=== PATIENT | male | born 1990 | race Hispanic/Latino ===

== ENCOUNTER 2023-07-01 10:02 | Emergency (ER) | payer OTHER ==
[~2023-07-01] VITALS: Ht 180.3 cm; Wt 104.5 kg
[2023-07-01] MEDS ORDERED: ADDE15CA3 PO (10:23)
[2023-07-01] MEDS ORDERED: METH-1164 PO (13:26)
[2023-07-01 13:34] VITALS: BP 121/80; TEMP 97.4; O2SAT 96
== END 2023-07-01 13:38 | disposition home or self-care (01) ==
LOC: M ED 10:02
DX: S39.012A Strain of muscle, fascia and tendon of lower back, initial encounter (principal); X58.XXXA Exposure to other specified factors, initial encounter; Y99.1 Military activity

== ENCOUNTER → 2023-12-10 | Outpatient (CLI) | payer OTHER ==
[~2023-12-10] MED LIST: ADDE15CA3 PO; METH-1164 PO
== END ==
LOC: M CARPUL 08:09
PROVIDERS: ATTEND Physician Assistant
DX: R06.02 Shortness of breath (principal)

== ENCOUNTER → 2023-12-31 | Outpatient (CLI) | payer OTHER ==
[~2023-12-31] MED LIST changes: +METHACHOLINE KIT (6 VIAL.NEB PREMIX) INH ONE
== END ==
LOC: M CARPUL 09:46
PROVIDERS: ATTEND Internal Medicine Pulmonary Disease
DX: J45.20 Mild intermittent asthma, uncomplicated (principal)

== ENCOUNTER → 2025-05-16 | Outpatient (CLI) | payer OTHER ==
[~2025-05-16] MED LIST changes: -METHACHOLINE KIT (6 VIAL.NEB PREMIX) INH ONE
[2025-05-16 10:28] LABS: PSA SCREENING 0.89 NG/ML (< 4.00)
[2025-05-16 10:32] LABS: LUTEINIZING HORMONE 4.3 mIU/ML (1.5-9.3)
[2025-05-16 10:33] LABS: TESTOSTERONE 348 NG/DL (241-827)
[2025-05-16 10:35] LABS: FREE T4 1.53 NG/DL (0.89-1.76)
[2025-05-16 10:36] LABS: CORTISOL AM 9.3 UG/DL (4.3-22.4)
== END ==
LOC: M LAB 08:34
PROVIDERS: ATTEND Nurse Practitioner Family
DX: N62 Hypertrophy of breast (principal)
CPT/HCPCS: 36415; 82105; 82533; 82672; 83001; 83002; 84146; 84403; 84410; 84439; 84443; G0103

== ENCOUNTER → 2025-05-29 | Outpatient (CLI) | payer OTHER | LOC: M LAB 08:38 | PROVIDERS: ATTEND Nurse Practitioner Family | DX: E29.1 Testicular hypofunction (principal) ==

== ENCOUNTER → 2025-07-12 | Outpatient (CLI) | payer OTHER ==
[~2025-07-12] MED LIST changes: +GASTROGRAFIN SOLUTION 30 ML As Ordered ONE; +ISOVUE-370 76% 100 ML VIAL As Ordered ONE
== END ==
LOC: M RAD 15:25
PROVIDERS: ATTEND Nurse Practitioner Family
DX: R86.1 Abnormal level of hormones in specimens from male genital organs (principal)
CPT/HCPCS: 74177; Q9963; Q9967